=== PATIENT | male | born 1955 | race Caucasian/White ===

== ENCOUNTER 2024-07-27 06:55 | Emergency (ER) | payer MEDICARE, OTHER, SELFPAY ==
--- NOTE | ~2024-07-27 | CT_ITS ---
EXAMINATION: CT HEAD WITHOUT IV CONTRAST STROKE HISTORY: Stroke Protocol. TECHNIQUE: Unenhanced helical CT of the head was performed per standard departmental protocol. Coronal and sagittal reformats of the head were also evaluated. One or more of the following techniques was used for dose reduction: Automated exposure control, adjustment of the mA and/or kV according to patient size, use of iterative reconstruction technique. DLP: 1214 mGy-cm COMPARISON: There are no prior studies for comparison. FINDINGS: The examination is limited by patient motion. BRAIN: There is a round 2.2 cm heterogeneously hyperdense mass in the interpeduncular cistern, in the region of the tip of the basilar artery. Findings likely represent an aneurysm of the basilar tip. There is mass effect on the midbrain. There is no hydrocephalus. There is no evidence of intracranial hemorrhage. SINUSES: The visualized paranasal sinuses are clear. The mastoid air cells and middle ear cavities are well pneumatized. ORBITS: The visualized orbits are unremarkable. BONES/SOFT TISSUES: The extracranial soft tissues are unremarkable. The calvarium is intact. No suspicious lytic or sclerotic lesions. 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 Further evaluation with CT angiography or MRI with angiography is recommended. These findings were discussed with Dr. Bustillo in the emergency room on 07/27/2024 at 7:27 AM. Electronically signed by: Santi Alberts MD 07/27/2024 07:33 AM EDT
--- NOTE | ~2024-07-27 | XR_ITS ---
EXAMINATION: XR CHEST 1 VIEW HISTORY: Left-sided weakness COMPARISON: There are no prior studies for comparison. FINDINGS: A single AP portable view of the chest performed at 7:25 AM is submitted. There are low lung volumes. The lungs are grossly clear. There is no pleural effusion, pneumothorax, or pulmonary vascular congestion. The heart is normal in size. There is degenerative disc disease of the spine. XR/XR chest 1V IMPRESSION: Low lung volumes. The lungs are grossly clear. Electronically signed by: Santi Alberts MD 07/27/2024 07:50 AM EDT
--- NOTE | ~2024-07-27 | CT_ITS ---
CLINICAL HISTORY: Stroke Protocol CT angiography head and neck with contrast. 3D Postprocessing. Comparison: None Findings: Aortic arch and cervical great vessels are patent with no aneurysm, dissection, hemodynamically significant stenoses, or occlusion. Calcified plaquing at the carotid bifurcation without significant narrowing. 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 Non-opacification of the right P1 segment though there is opacification of the P2 segment distally suggesting collateralization from a posterior communicating artery. Anterior circulation intracranial vessels appear patent. No additional aneurysms identified. No dissection or significant stenosis. The visualized thyroid gland is unremarkable. No cervical mass or fluid collection. Soft tissue swelling adjacent to the left orbit Lung apices clear. Paranasal sinuses and mastoid air cells are clear. No acute fracture. 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 Nonopacified P1 segment of the right posterior cerebral artery with reconstitution likely via a posterior communicating artery. The remaining right posterior cerebral artery remains opacified. Otherwise no occlusion, significant stenosis or aneurysm involving the remaining intracranial vessels. This document has been electronically signed by: Ruby Azar MD on 07/27/2024 08:41:22
--- NOTE | 2024-07-27 07:04 | ECG_ITS ---
Test Reason : stroke Blood Pressure : */* mmHG Vent. Rate : 108 BPM Atrial Rate : 108 BPM P-R Int : 182 ms QRS Dur : 94 ms QT Int : 348 ms P-R-T Axes : 45 5 47 degrees QTcB Int : 466 ms Sinus tachycardia Otherwise normal ECG No previous ECGs available Referred By: Paz Bustillo Electronically Signed By: ZEHRA CLANCY MD
--- NOTE | 2024-07-27 07:05 | ED.NEUROSD ---
HPI - Neuro Symptoms/Deficit General Chief Complaint: Stroke Stated Complaint: Stroke Alert L side Deficits & speech LKW 0430 Time Seen by Provider: 07/27/24 07:03 Source: patient and EMS Mode of arrival: EMS Limitations: no limitations History of Present Illness ED Provider: DR. Bustillo HPI Narrative: 69-year-old male history of hypertension presented by EMS for stroke alert evaluation. Patient woke up this morning at 05:30 after he took a shower he bent over then fell down hitting his head patient after the noticed left-sided weakness that is started about 530, he also noticed slurred speech. No known history of atrial fibrillation, not taking any anticoagulation, no similar history in the past. Related Data Allergies Allergy/AdvReac Type Severity Reaction Status Date / Time No Known Allergies Allergy Verified 07/27/24 07:22 Review of Systems Review of Systems: All other systems are reviewed and are negative Constitutional: Reports as per HPI and Reports no additional constitutional complaints Eyes: Reports as per HPI and Reports no additional eye complaints Reports system reviewed and no additional complaints, except as documented Cardiovascular: Reports as per HPI and Reports no additional cardiovascular complaints Respiratory: Reports as per HPI and Reports no additional respiratory complaints Gastrointestinal: Reports as per HPI and Reports no additional gastrointestinal complaints Genitourinary: Reports no additional female genitourinary complaints Musculoskeletal: Reports no additional musculoskeletal complaints Skin/Breast: Reports system reviewed and no additional complaints, except as docu Psychiatric: Reports no additional psychiatric complaints Endocrine: Reports no additional endocrine complaints Hematologic/Lymphatic: Reports no additional hematologic/lymphatic complaints Allergic/Immunologic: Reports no additional allergic/immunologic complaints Reports system reviewed and no additional complaints, except as documented and Reports Abnormal speech present FOR[facility] Social History Social History Alcohol intake: current Alcohol type: beer Physical Exam Vital Signs: Vital Signs: Last Vital Signs Temp 98.2 F 07/27/24 08:09 Pulse 108 H 07/27/24 08:09 Resp 17 07/27/24 08:09 BP 134/71 07/27/24 08:09 Pulse Ox 96 07/27/24 08:09 O2 Del Method Room Air 07/27/24 08:09 BMI result Body Mass Index 33.8 Vital signs have been reviewed and appear to be correct. Blood pressure elevated. Heart rate normal. Respiratory rate normal. Temperature normal. Oxygen saturation normal. Appearance: Alert. Oriented X3. No acute distress. Head: Normal external exam. Normocephalic. Atraumatic. No Tovar signs noted. No raccoon eyes noted Eyes: PERRLA. EOMI. Conjunctiva and sclera normal. Eyelids normal. ENT: TM's Normal. Pharynx normal. Uvula midline. Moist mucous membranes. No trismus noted. No drooling noted. No muffled voice noted. Neck: Normal inspection. Neck supple. FROM. No adenopathy. Thyroid Normal. No meningeal signs. No neck mass noted. CVS: Normal heart rate and rhythm. Heart sound normal. No murmurs noted. Pulses normal throughout. Respiratory: No respiratory distress. Painless inspiration. Breath sounds normal. No wheezes/rales/rhonchi noted. Chest nontender. No accessory muscle usage noted or decreased air movement noted. Abdomen: Soft and nontender. Bowel sounds normal in all 4 quadrants. No distention noted. No organomegaly noted. No visible injury noted. Back: No CVA tenderness. Full range of motion noted. Skin: Skin warm and dry. Normal skin color. Normal skin turgor. No rashes/lesions/lacerations noted. Extremities: No lower extremity edema. Extremities exhibit normal range of motion. Extremities nontender. Neuro: Oriented X 3. Left facial droop, left hemiparesis. Course Reevaluation(s) Reevaluation #1: Case discussed with Dr. Durán over the phone, Dr. Durán who reviews the images, recommended no TNK and emergent transfer to if tertiary facility because of the cerebral aneurysm where they have intervention neurology service available Time: 07:44 Reevaluation #2: Dr. Durán reviewed the CAT scan called me patient need an emergent transfer to tertiary facility for aneurysm management. Case discussed with Dr. Perez who recommended to transfer the patient to [facility] for subspecialty consultation, waiting for call back from hospitalist service from [facility] to accept the patient and started transfer process. Time: 08:21 Reevaluation #3: A 69-year-old male presented with left hemiparesis and NIH score of 13, symptoms started at 05:30 this morning, TNK was not given following recommendation of our neurologist Dr. Durán because of the large size cerebral aneurysm and possible thrombosis inside the aneurysm, patient will be transferred to [facility] for further neurological evaluation. Time: 08:40 Medications Administered Discontinued Medications Generic Name Dose Route Start Last Admin Trade Name Rigo PRN Reason Stop Dose Admin Iohexol 100 ml 07/27/24 07:54 07/27/24 07:54 Iohexol 350 Mg/Ml 100 Ml Infus..Btl IV 07/27/24 07:55 70 ml ONCE ONE Administration Medical Decision Making Differential Diagnosis Differential Diagnoses: The differential diagnosis associated with the presentation includes (Hemorrhagic stroke, ischemic stroke, cerebral aneurysm, pneumonia, pneumothorax, pleural effusion, electrolyte derangement, severe anemia, anticoagulation.) Admission/Observation Consideration of admission/observation: Escalation of care including admission/observation considered Lab Data MDM Lab Attestation statement: I reviewed the patient's lab results. 07/27/24 07:38 07/27/24 07:38 Labs: Lab Results 07/27/24 07/27/24 Range/Units 07:16 07:38 WBC 7.8 (4.8-10.8) X10*3/uL RBC 5.03 (4.60-5.80) X10*6/uL Hgb 14.5 (14.0-18.0) g/dl Hct 41.1 L (42.0-52.0) % MCV 81.7 (80.0-98.0) fL MCH 28.8 (27.0-33.0) pg MCHC 35.3 (31.0-36.0) g/dl RDW 13.2 (11.0-16.0) % Plt Count 187 (160-400) X10*3/uL MPV 9.0 L (9.4-12.4) fL Immature Gran % (Auto) 0.4 (0.0-0.4) % Neut % (Auto) 85.8 H (45-73) % Lymph % (Auto) 6.1 L (20-40) % Hoke % (Auto) 7.1 (2-11) % Eos % (Auto) 0.3 (0-4) % Baso % (Auto) 0.3 (0-2) % Lymph # (Auto) 0.5 L (1.2-4.9) X10*3/uL Hoke # (Auto) 0.6 (0.1-1.2) X10*3/uL Eos # (Auto) 0.0 (0.0-0.4) X10*3/uL Baso # (Auto) 0.0 (0.0-0.2) X10*3/uL Abs Immat Gran (auto) 0.03 (0.00-0.03) X10*3/uL Absolute Neuts (auto) 6.7 (2.0-8.3) x10*3/uL Absolute Nucleated RBC 0.000 (0.0-0.012) X10*3/uL Nucleated RBC % (auto) 0.0 (0.0-0.2) /100WBC PT 10.5 L (10.9-12.4) SEC Whole Blood PT 12.3 (11.1-13.5) sec INR 0.9 (0.9-1.1) Whole Blood INR 1.0 (0.9-1.1) APTT 24.9 L (26.0-36.8) SEC Sodium 139 (135-145) mmol/L Potassium 4.2 (3.3-5.1) mmol/L Chloride 106 (96-108) mmol/L Carbon Dioxide 22 (22-29) mmol/L Anion Gap 15 (12-20) BUN 24 H (9-16) mg/dL Creatinine 1.11 (0.5-1.4) mg/dL Estim Creat Clear Calc 88.6 Estimated GFR > 60 Random Glucose 143 H (60-115) mg/dL Calcium 9.3 (8.4-10.2) mg/dL Troponin I High Sens 2.7 (<3.5-35.0) ng/L Triglycerides 112 (<150) mg/dL Cholesterol 194 (<200) mg/dL LDL Cholesterol, Calc 127 H (<100) mg/dL HDL Cholesterol 45 (>40) mg/dL Independent Interpretation I performed an independent interpretation of an: Plain X-Ray (Chest:Low lung volumes. The lungs are grossly clear. 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 Further evaluation with CT angiography or MRI with angiography is recommended. ) Radiology Impression Discussion of test interpretation with radiology: I have reviewed the radiologist's reading. NIH Stroke Scale Internal: Initial- Upon Arrival Time: 07:08 Level of Consciousness: Alert Level of Consciousness Questions: Answers both questions correctly Level of Consciousness Commands: Performs both tasks correctly Best Gaze: Normal Visual: No visual loss Facial Palsy: Minor paralyis Motor Arm (Right): No drift Motor Arm (Left): No effort against gravity Motor Leg (Right): No drift Motor Leg (Left): No effort against gravity Limb Ataxia: Absent Sensory: Mild to moderate sensory loss Best Language: Mild to moderate aphasia Dysarthia: Normal Extinction and Inattention: No abnormality Score: 9 Critical Care Time Critical Care Time Critical Care Time: Yes Total Critical Care Time: 60 Attestation: The patient was critically ill with a high probability of imminent or life-threatening deterioration. I spent greater than 30 minutes of discontinuous time evaluating the patient, delivering critical care at the bedside, discussing evaluating data with consultants. Critical care time does not include time spent performing separately billable procedures or teaching. Time spent performing critical care was 60 minutes. Discharge Plan Discharge Clinical Impression: Cerebrovascular accident, Cerebral aneurysm Patient Disposition: [facility] Transfer Details: [facility]. Print Language: Nepali
[2024-07-27 07:19] VITALS: BP 133/83; PULSE 108; PULSE 110; RESP 17; TEMP 36.8; O2SAT 94; O2SAT 95; BMI 33.8
[2024-07-27 07:20] LABS: Prothrombin Time Whole Bld POC 12.3 sec (11.1-13.5)
[2024-07-27 07:43] VITALS: BP 121/81; PULSE 105
[2024-07-27 07:43] LABS: MANUAL DIFF FLAG NO
[2024-07-27 07:44] LABS: Basophils Percent Auto 0.3 % (0-2); Eosinophils Percent Auto 0.3 % (0-4); Hematocrit 41.1 % (42.0-52.0); Hemoglobin 14.5 g/dl (14.0-18.0); Imm Gran Abs Auto 0.03 X10*3/uL (0.00-0.03); Imm Gran Pct Auto 0.4 % (0.0-0.4); Lymphocytes Absolute Auto 0.5 X10*3/uL (1.2-4.9); Lymphocytes Percent Auto 6.1 % (20-40); Mean Corpuscular HGB Conc 35.3 g/dl (31.0-36.0); Mean Corpuscular Hemoglobin 28.8 pg (27.0-33.0); Mean Corpuscular Volume 81.7 fL (80.0-98.0); Monocytes Absolute Auto 0.6 X10*3/uL (0.1-1.2); Monocytes Percent Auto 7.1 % (2-11); Neutrophils Absolute Auto 6.7 x10*3/uL (2.0-8.3); Neutrophils Percent Auto 85.8 % (45-73); Platelet Count 187 X10*3/uL (160-400); Red Blood Count 5.03 X10*6/uL (4.60-5.80); Red Cell Distribution Width 13.2 % (11.0-16.0); White Blood Count 7.8 X10*3/uL (4.8-10.8)
[2024-07-27 07:52] LABS: INTERNATIONAL NORM RATIO 0.9 (0.9-1.1); Prothrombin Time 10.5 SEC (10.9-12.4)
[2024-07-27] MEDS: iohexoL 350 MG/ML 100 ML INFUS..BTL IV (07:54)
[2024-07-27 07:55] VITALS: BP 114/72; PULSE 104
[2024-07-27 07:55] LABS: Partial Thromboplastin Time 24.9 SEC (26.0-36.8)
[2024-07-27 07:58] LABS: Anion Gap 15 (12-20); Blood Urea Nitrogen 24 mg/dL (9-16); Calcium 9.3 mg/dL (8.4-10.2); Carbon Dioxide 22 mmol/L (22-29); Chloride 106 mmol/L (96-108); Cholesterol 194 mg/dL (<200); Creatinine Clr Calc Pharmacy 88.6; Estimated Glomerular Filt Rate > 60; Glucose Random 143 mg/dL (60-115); HDL Cholesterol 45 mg/dL (>40); LDL Cholesterol Calculated 127 mg/dL (<100); Potassium 4.2 mmol/L (3.3-5.1); Sodium 139 mmol/L (135-145); Triglycerides 112 mg/dL (<150)
[2024-07-27 08:02] LABS: Stroke Lab Use COMPLETE
[2024-07-27 08:04] LABS: Troponin-I High Sensitivity 2.7 ng/L (<3.5-35.0)
[2024-07-27 08:09] VITALS: BP 134/71; PULSE 108; RESP 17; TEMP 36.8; O2SAT 96
--- NOTE | 2024-07-27 08:11 | PC.NURSE ---
Addendum entered by Campos West RN 07/27/24 08:24: Patient also presents with left sided deficits, flaccid arm and leg and left facial droop. Patient reported well time to this RN 0400 and symptoms began @ 0430 EMS and provider have a well time of 0530. Original Note: Patient presents to ED with possible stroke. Patient was getting ready for work this morning, approx 0430 patient felt lightheaded when reaching for cellphone fell forward and hit head on coffee table. Denies pain but c/o headache rated 5/10, Right eye sluggish but reactive left eye constrictive and non reactive. Laceration to left eyebrow, wound cleansed with NS and applied DCD. lights dimmed for comfort. Denies SOB. VSS and up to date. 18G in right AC and 20G in left AC, blood collected/sent. CT scan performed results pending. Plan of care on going
[2024-07-27 08:40] LABS: Glucose, Whole Blood 172 mg/dL (60-115)
--- OUTSIDE RECORDS SUMMARY | 2024-07-27 08:43 | XMS_ITS | Clinical Summary ---
Author Organization [facility] [address] [place] [address] [place] [phone] Phone Care Team Providers Care Luggage Repairer Name Role Phone Sumit Amaro MD Primary Care Provider [phone] Allergies No known active allergies Medications lisinopriL (PRINIVIL,ZESTRI L) 20 mg tablet TAKE 1 TABLET BY MOUTH EVERY DAY 90 tablet 1 03/25/2024 Active atorvastatin (LIPITOR) 20 mg tablet TAKE 1 TABLET BY MOUTH EVERY DAY 90 tablet 1 03/25/2024 Active metoprolol succinate (TOPROL-XL) 25 mg 24 hr tablet TAKE 1 TABLET BY MOUTH EVERY DAY 90 tablet 03/31/2024 Active Active Problems Problem Noted Date Diagnosed Date Overweight 08/09/2016 Pure hypercholesterolemia 05/07/2013 Assessment & Plan (03/02/2024 4:04 PM EST): HTN (hypertension) 07/10/2012 Assessment & Plan (03/02/2024 4:04 PM EST): Orders: Basic metabolic panel; Future Smoking 07/10/2012 Assessment & Plan (03/02/2024 4:04 PM EST): Immunizations Name Administration Dates Next Due COVID-19 (Pfizer/Comirnaty) 12yo and older 11/10 DTaP / Hib 02/16/2015 Influenza Quadravalent, MDCK , 0.5ml, preservative free (Flucelvax) 6mo and older 02/12/2022,11/05/2018 Influenza trivalent, 0.5mL (Fluad) 65yo and olde r 11/11/2023 Influenza trivalent, 0.5mL, preservative free (Fluarix; FluLaval; Fluzone) ages 6mo and older (Afluria) 3 years and older 11/13/2022,11/05/2012 Pneumococcal conjugate 20 va lent (Prevnar 20, PCV 20) 2mo and older 11/11/2023 Tdap Tetanus diptheria acell ular pertussis (Boostrix; Adacel) 7yo and older 02/16/2015 Medical History Medical History Date Comments HTN (hypertension) 07/10/2012 DX:HTN (hyper tension) Family history of premature CAD 07/10/2012 DX:Family history of premature CAD Pure hypercholesterolemia 05/07/2013 DX:Pur e hypercholesterolemia Family History Medical History Relation Name Comments Heart attack Father initial AL at a ge 55, smoker, at age 69 after AL Other: Hodgikins disease Mother d at age 47 Relation Name Status Comments Father Mother Social History Tobacco Use Types Packs/Day Years Used Date Smoking Tobacco: Every Day Cigarettes Smokeless Tobacco: Current Tobacco Cessation:Ready to Q uit: Not Asked; Counseling Given: Not Answered Alcohol Use Standard Drinks/Week Comments Yes 0 (1 standard drink = 0.6 oz pur e alcohol) Sex and Gender Information Value Date Recorded Sex Assigned at Not on file Legal Sex Male 5:32 PM EST Gender Identity Not on file Sexual Orientation Not on file Obstetrics History Last Filed Vital Signs Vital Sign Reading Time Taken Comments Blood Pressure 110/84 03/02/2024 8:59 AM EST provider to recheck Pulse 92 03/02/2024 8:59 AM EST Temperature 36.1 ??C (96.9 ??F) 03/02/2024 8 :59 AM EST Respiratory Rate 14 03/02/2024 8:59 AM EST Oxygen Saturation - - Inhaled Oxygen Concentration - - Weight 117 kg (257 lb) 03/02/2024 8:59 AM EST Height 188 cm (6' 2 ) 03/02/2024 8:59 AM EST Body Mass Index 33 03/02/2024 8:59 AM EST Plan of Treatment Upcoming Encounters Date Type Department Care Team (Late st Contact Info) Description 09/01/2024 1:00 PM EDT Office Visit Adult Medicine [facility] [address] [place] [phone] Sumit Amaro MD [address] [place] [address] Health Maintenance Due Date Last Done Comments Zoster Vaccines (1 of 2) 07/10/2007 Cholesterol Screening (Lipid Panel) 02/10/2022 Colorectal Cancer Screening: Stool Based Tests (FOBT/FIT) 02/10/2022 Hepatitis C Screening 02/10/2022 Hypertension/CHF/CAD Annual BMP Blood Test 02/10/2022 Social Influencers of Health Screening 02/10/2022 COVID-19 Vaccine ( season) 2024 11/11/2023, 12/16/2022, 03/07/2021, Additional history exists DTaP,Tdap,and Td Vaccines (3 - Td or Tdap) 02/16/2025 02/16/2015, 02/16/2015 Depression Screening 03/02/2025 03/02/2024 Falls Risk Assessment 03/02/2025 03/02/2024, 023 Medicare Annual Wellness Visit 03/02/2025 03/02/2024 RSV Immunization Adult Patients (1 - 1-dose 75+ series) 2032 HIB Vaccines Aged Out 02/16/2015 No longer eligi ble based on patient's age to complete this topic Abdominal Aortic Aneurysm (AAA) Screen Completed 05/27/2023 Influenza Vaccine Completed 11/11/2023, , 02/12/2022, Additional history exists Pneumococcal Vaccine: 50+ Years Completed 11/11/2023 HPV Vaccines Aged Out No longer eligi ble based on patient's age to complete this topic Hepatitis A Vaccines Aged Out No long er eligible based on patient's age to complete this topic Hepatitis B Vaccines Aged Out No long er eligible based on patient's age to complete this topic IPV Vaccines Aged Out No longer eligi ble based on patient's age to complete this topic MMR Vaccines Aged Out No longer eligi ble based on patient's age to complete this topic Meningococcal ACWY Vaccine Aged Out N o longer eligible based on patient's age to complete this topic Meningococcal B Vaccine Aged Out No l onger eligible based on patient's age to complete this topic RSV Immunization Patients Under 20 months Aged Out No longer eligible based on patient's age to complete this topic Varicella Vaccines Aged Out No longer eligible based on patient's age to complete this topic Procedures Procedure Name Priority Date/Time Associated Diagnosis Comments US ABDOMINAL AORTA REAL TIME SCREEN STUDY AAA Routine 05/27/2023 7:51 AM EDT Essential (primary) hypertension from Last 3 Months or Most Recently Relevant to Health Maintenance Results * US ABDOMINAL AORTA REAL TIME SCREEN STUDY AAA (05/27/2023 7:51 AM EDT) Anatomical Region Laterality Modality Ultrasound 02/19/2023 8:59 AM EST Narrative 05/27/2023 10:20 AM EDT History: Screening for abdominal aortic aneurysm. Ultrasound of the abdominal aorta: The abdominal aorta is normal in course, caliber and configuration. Proximal aortic AP diameter is 1.8 cm maximum. Mid aortic diameter is 1.6 cm, and distal aortic diameter is 1.7 cm. The common iliac arteries are normal in caliber as well. IMPRESSION: Negative screening examination for abdominal aortic aneurysm. Procedure Note Junito Serra MD - 10/20/2023 History: Screening for abdominal aortic aneurysm. Ultrasound of the abdominal aorta: The abdominal aorta is normal incourse, caliber and configuration. Proximal aortic AP diameter is 1.8 cm maximum. Mid aorticdiameter is 1.6 cm, and distal aortic diameter is 1.7 cm. The common iliac arteries are normalin caliber as well. IMPRESSION: Negative screening examination for abdominal aortic aneurysm. Sumit Amaro MD IMG US PROCEDURES Final Result from Last 3 Months or Most Recently Relevant to Health Maintenance Insurance MEDICARE UNICARE Care Teams Luggage Repairer Relationship Specialty Start Date End Date Sumit Amaro MD [address] [place] [address] PCP - General Internal Medicine 12/03/11
[2024-07-27] MEDS: Acetaminophen 325 MG TABLET 975 MG PO (09:12)
--- NOTE | 2024-07-27 09:15 | PC.NURSE ---
Nursing swallow eval performed, patient passed. Tylenol administered for headache rated 5/10, effectiveness pending
[2024-07-27 09:21] VITALS: BP 133/74; PULSE 107; RESP 18; TEMP 36.7; O2SAT 96
--- NOTE | 2024-07-27 09:27 | PC.NURSE ---
Notified angel Red about patient transferring to [facility]. Cell number [phone]
== END 2024-07-27 09:53 | disposition short-term general hospital (02) ==
PROVIDERS: Emergency Provider Emergency Medicine; PCP Internal Medicine
DX: I63.9 Cerebral infarction, unspecified (principal); I67.1 Cerebral aneurysm, nonruptured; G81.94 Hemiplegia, unspecified affecting left nondominant side; R29.713 NIHSS score 13; R29.810 Facial weakness; R47.81 Slurred speech; Z91.81 History of falling
CPT/HCPCS: 36415; 70450; 70496; 70498; 71045; 80048; 80061; 82947; 84484; 85025; 85610; 85730; 93005; 99285; Q9967

== ENCOUNTER → 2024-07-27 07:04 | Outpatient (BNV) | payer MEDICARE, OTHER, SELFPAY | PROVIDERS: Emergency Provider Emergency Medicine; Visit Provider Radiology Diagnostic Radiology | DX: R53.1 Weakness (principal); R47.81 Slurred speech | CPT/HCPCS: 70450; 71045 ==

== ENCOUNTER → 2024-07-27 07:04 | Outpatient (BNV) | payer OTHER, MEDICARE, SELFPAY | PROVIDERS: Emergency Provider Emergency Medicine; PCP Internal Medicine; Visit Provider Internal Medicine Cardiovascular Disease | DX: R00.0 Tachycardia, unspecified (principal) | CPT/HCPCS: 93010 ==